=== PATIENT | female | born 1970 | race Hispanic/Latino ===

== ENCOUNTER 2017-10-15 15:59 | Outpatient (CLI) | payer BC | END 2017-10-15 16:00 | disposition home or self-care (01) | LOC: BICMAMMO 15:59 | PROVIDERS: ATTEND Family Medicine | DX: Z12.31 Encounter for screening mammogram for malignant neoplasm of breast (principal) | CPT/HCPCS: 77063; 77067 ==

== ENCOUNTER 2018-10-16 15:42 | Outpatient (CLI) | payer BC | END 2018-10-16 15:43 | disposition home or self-care (01) | LOC: BICMAMMO 15:42 | PROVIDERS: ATTEND Family Medicine | DX: Z12.31 Encounter for screening mammogram for malignant neoplasm of breast (principal) | CPT/HCPCS: 77063; 77067 ==

== ENCOUNTER 2019-07-13 13:27 | Outpatient (CLI) | payer BC ==
--- NOTE | 2019-07-13 15:02 | CT ---
CT abdomen and pelvis with and without IV contrast HISTORY: Microscopic hematuria. FINDINGS: No comparison. Each renal collecting system, ureter, and urinary bladder are decompressed w ithout stone evident. No filling defects are apparent within the urinary system on the delayed images. The lung bases are clear. Solid organs are intact. No free air or free fluid. Large amount of stool throughout the colon. At the right adnexa, a 2.8 cm cyst is centered at the rig ht ovary. Physiologic amount of free fluid within the cul-de-sac. Intrauterine contraceptive device in place. IMPRESSION: No urinary tract abnormalities are demonstrated to explain hematuria. Right ovarian cyst 2.8 cm. Constipation. IUD in place.
== END 2019-07-13 13:28 | disposition home or self-care (01) ==
LOC: BICCT 13:27
PROVIDERS: ATTEND Urology
DX: R31.29 Other microscopic hematuria (principal); N83.201 Unspecified ovarian cyst, right side; K59.00 Constipation, unspecified; Z97.5 Presence of (intrauterine) contraceptive device
CPT/HCPCS: 74178

== ENCOUNTER 2019-10-18 15:54 | Outpatient (CLI) | payer BC ==
--- NOTE | 2019-10-18 16:51 | MMO ---
Bilateral MAMMO Bilat Screen [facility]. CLINICAL HISTORY: Patient is 49 years old and is seen for screening. The patient has no family history of breast cancer. The patient has no personal history of cancer. VIEWS: The views performed were: bilateral craniocaudal with tomosynthesis and bilateral mediolateral oblique with tomosynthesis. FILMS COMPARED: The present examination has been compared to prior imaging studies performed at [facility] on 09/14/2015, 09/18/2016, 10/15/2017 and 10/16/2018. This study has been interpreted with the assistance of computer-aided detection. MAMMOGRAM FINDINGS: The breasts are heterogeneously dense, which could obscure a lesion on mammography. Benign calcifications are noted bilaterally. Nodularity is stable. There are no suspicious masses, suspicious calcifications, or new areas of architectural distortion. IMPRESSION: THERE IS NO MAMMOGRAPHIC EVIDENCE OF MALIGNANCY. A ROUTINE FOLLOW-UP MAMMOGRAM IN 1 YEAR IS RECOMMENDED. THE RESULTS OF THIS EXAM WERE SENT TO THE PATIENT. ACR BI-RADS Category 2 - Benign finding MAMMOGRAPHY NOTE: 1. A negative mammogram report should not delay a biopsy if a dominant of clinically suspicious mass is present. 2. Approximately 10% to 15% of breast cancers are not detected by mammography. 3. Adenosis and dense breasts may obscure an underlying neoplasm. Reported by: YULI AMAYA MD Electonically Signed: [id number]
== END 2019-10-18 15:55 | disposition home or self-care (01) ==
LOC: BICMAMMO 15:54
PROVIDERS: ATTEND Family Medicine
DX: Z12.31 Encounter for screening mammogram for malignant neoplasm of breast (principal)
CPT/HCPCS: 77063; 77067

== ENCOUNTER 2021-06-04 10:07 | Outpatient (CLI) | payer BC | END 2021-06-04 10:08 | disposition home or self-care (01) | LOC: BICMAMMO 10:07 | PROVIDERS: ATTEND Family Medicine | DX: N63.10 Unspecified lump in the right breast, unspecified quadrant (principal) | CPT/HCPCS: 77066; G0279 ==

== ENCOUNTER 2022-09-27 11:19 | Outpatient (CLI) | payer BC | END 2022-09-27 11:20 | disposition home or self-care (01) | LOC: BICMAMMO 11:19 | PROVIDERS: ATTEND Family Medicine | DX: Z12.31 Encounter for screening mammogram for malignant neoplasm of breast (principal) | CPT/HCPCS: 77063; 77067 ==

== ENCOUNTER 2023-10-29 14:22 | Outpatient (CLI) | payer BC | END 2023-10-29 14:23 | disposition home or self-care (01) | LOC: BICMAMMO 14:22 | PROVIDERS: ATTEND Family Medicine | DX: Z12.31 Encounter for screening mammogram for malignant neoplasm of breast (principal) | CPT/HCPCS: 77063; 77067 ==